=== PATIENT | male | born 1975 | race Caucasian/White ===

== ENCOUNTER 2018-01-03 21:10 | Emergency (ER) | payer MEDICARE, MEDICAID ==
--- NOTE | 2018-01-03 22:57 | ER Document Report ---
ED Extremity Problem, Upper - General Chief Complaint: Arm Pain Stated Complaint: ARM/ELBOW PAIN Time Seen by Provider: 01/03/18 21:55 Mode of Arrival: Ambulatory Information source: Patient Notes: 42-year-old male presents to ED for complaint of right elbow and forearm pain for about 1-2 weeks. He states that the elbow had just started to feel better when he tried to help push a car today. He states he and several other people with him heard a pop and then his arm started swelling back up and the pain became much worse. She is alert and oriented respirations regular and unlabored speaking in full sentences walks with a steady gait. TRAVEL OUTSIDE OF THE [place] IN LAST 30 DAYS: No - HPI Patient complains to provider of: Pain, Swelling, Right, Elbow Onset: Other - States is been hurting for 1-2 weeks but today he tried to push a car and he felt a pop several people heard a pop Recent injury: Yes Where: Outdoors Quality of pain: Sharp, Throbbing Pain Level: 5 Context: Other - [place] a pop while trying to push a car Exacerbated by: Movement, Exertion Relieved by: Rest, Positioning Similar symptoms previously: Yes Recently seen / treated by doctor: No - Related Data Allergies/Adverse Reactions: No Known Allergies Allergy (Verified 04/30/16 10:07) Past Medical History - General Information source: Patient - Social History Smoking Status: Former Smoker Cigarette use (# per day): No Chew tobacco use (# tins/day): No Smoking Education Provided: No Frequency of alcohol use: None Drug Abuse: Marijuana Occupation: Disabled Lives with: Family Family History: Reviewed & Not Pertinent Patient has suicidal ideation: No Patient has homicidal ideation: No - Past Medical History Cardiac Medical History: Reports: None Pulmonary Medical History: Reports: None EENT Medical History: Reports: None Neurological Medical History: Reports: None Endocrine Medical History: Reports: None Renal/ Medical History: Reports: None Malignancy Medical History: Reports None GI Medical History: Reports: None Musculoskeletal Medical History: Reports Hx Arthritis, Reports Hx Musculoskeletal Deformity, Reports Hx Musculoskeletal Trauma Skin Medical History: Reports None Psychiatric Medical History: Reports: None Traumatic Medical History: Reports: Hx Spine Fracture - Fractured L5 Infectious Medical History: Reports: None Past Surgical History: Reports: Hx Orthopedic Surgery - Spinal fusion - Immunizations Hx Diphtheria, Pertussis, Tetanus Vaccination: Yes - 2006 Review of Systems - Review of Systems Constitutional: No symptoms reported EENT: No symptoms reported Cardiovascular: No symptoms reported Respiratory: No symptoms reported Gastrointestinal: No symptoms reported Genitourinary: No symptoms reported Male Genitourinary: No symptoms reported Musculoskeletal: Joint pain - Right elbow, Joint swelling - Right elbow and forearm Skin: No symptoms reported Hematologic/Lymphatic: No symptoms reported Neurological/Psychological: No symptoms reported -: Yes All other systems reviewed and negative Physical Exam - Vital signs Vitals: Temp Pulse Resp BP Pulse Ox 98.6 F 93 20 160/102 H 100 01/03/18 21:16 01/03/18 21:16 01/03/18 21:16 01/03/18 21:16 01/03/18 21:16 Interpretation: Normal - General General appearance: Appears well, Alert - HEENT Head: Normocephalic, Atraumatic Eyes: Normal Pupils: PERRL - Respiratory Respiratory status: No respiratory distress Chest status: Nontender Breath sounds: Normal Chest palpation: Normal - Cardiovascular Rhythm: Regular Heart sounds: Normal auscultation Murmur: No - Abdominal Inspection: Normal Distension: No distension Bowel sounds: Normal Tenderness: Nontender Organomegaly: No organomegaly - Back Back: Normal, Nontender - Extremities General upper extremity: Normal color, Normal temperature General lower extremity: Normal inspection, Nontender, Normal color, Normal ROM , Normal temperature, Normal weight bearing. No: Adalberto's sign Elbow: Tender, Limited ROM - Due to pain, Other - Swelling. No: Abrasion, Deformity, Dislocation, Ecchymosis, Instability, Joint effusion, Laceration, Swollen bursa Forearm: Tender, Other - Swelling - Neurological Neuro grossly intact: Yes Cognition: Normal Orientation: AAOx4 [place] Coma Scale Eye Opening: Spontaneous Vipul Coma Scale Verbal: Oriented Vipul Coma Scale Motor: Obeys Commands [place] Coma Scale Total: 15 Speech: Normal Motor strength normal: LUE, RUE, LLE, RLE Sensory: Normal - Psychological Associated symptoms: Normal affect, Normal mood - Skin Skin Temperature: Warm Skin Moisture: Dry Skin Color: Normal Course - Re-evaluation Re-evalutation: 01/03/18 23:30 X-ray discussed with patient. Patient was given a Jelm dispense pack for his pain. 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 Patient does have swelling to the elbow and forearm from an injury he received while pushing a car. states the patient and several people there were standing nearby all heard a loud pop when the injury occurred today. Patient has been instructed to elevate ice and use a sling for his injury. - Vital Signs Vital signs: Temp Pulse Resp BP Pulse Ox 98.6 F 78 18 160/94 H 100 01/03/18 21:16 01/03/18 23:20 01/03/18 23:20 01/03/18 23:20 01/03/18 21:16 - Diagnostic Test Radiology reviewed: Image reviewed, Reports reviewed Procedures - Immobilization Right Elbow Immobilizer type: Blane wrap, Sling Performed by: PCT Post-Proc Neuro Vasc Exam: Normal Alignment checked and good: Yes Discharge - Discharge Clinical Impression: Injury of right elbow region Right forearm injury Qualifiers: Encounter type: initial encounter Qualified Code(s): S59.911A - Unspecified injury of right forearm, initial encounter Condition: Stable Disposition: HOME, SELF-CARE Additional Instructions: SPRAIN: Your injury is a sprain. A sprain results from stretching or tearing of the ligaments, usually from a twisting injury. The ligaments will require time and protection in order to heal properly. Many sprains are quite disabling and should be taken seriously. The usual initial treatment of sprains is cold packs, elevation, and rest of the injured area. Your physician has assessed the seriousness of your ligament injury, and has outlined a treatment plan. Understand that this treatment may change, depending on how you progress. If a re-examination was recommended, it is important that you follow up as instructed. Call the doctor any time if there is severe pain, numbness, or loss of function in the injured area. BLANE WRAP: A compression dressing (blane wrap) has been placed. This helps hold the area still. It limits swelling and internal bleeding. The wrap should be comfortably snug -- not tight. You should feel a sense of pressure, but not severe pain under the wrap. Unless the physician tells you otherwise, you can adjust the wrap for comfort. If the wrap causes symptoms suggesting it's too tight -- uncomfortable pressure, swelling or discoloration beyond the wrap, numbness, or severe pain - - you must loosen the wrap. If these symptoms don't resolve promptly, return for re-evaluation. ICE & ELEVATION: Apply ice packs frequently against the painful area. Many different schedules are recommended, such as "20 minutes on, 20 minutes off" or "one hour ice, two hours rest." If you need to work, you may need to go longer between ice treatments. You should plan to have the area ice packed AT LEAST one- fourth of the time. The ice should be applied over the wrap, tape, or splint, or over a layer of cloth -- not directly against the skin. Some ice bags have a built-in cloth and can be put directly on the skin. Your injured part should be elevated as much as possible over the next 48 hours. Try to keep the injury above the level of the heart. Avoid use of the injured area. Elevation and rest will decrease the swelling. ORAL NARCOTIC MEDICATION: You have been given a Jelm dispense pack for pain control. This medication is a narcotic. It's best taken with food, as nausea can result if taken on an empty stomach. Don't operate machinery or drive within six hours of taking this medication. Do not combine this medicine with alcohol, or with any medication which can cause sedation (such as cold tablets or sleeping pills) unless you get permission from the physician. Narcotics tend to cause constipation. If possible, drink plenty of fluids and eat a diet high in fiber and fruits. Please be aware that prescription narcotics also have the potential for abuse. People become addicted to these medications because of the general sense of wellbeing that they induce. This feeling along with a significant reduction in tension, anxiety, and aggression provides a stimulating seductive quality to these drugs. Once your pain is under control, we encourage you to discard your unused narcotics. Sling as Treatment A sling has been applied to protect the injury. This is adequate immobilization for this type of injury -- no cast or brace is required. Keep the sling on at all times until instructed to remove it by the doctor. Even though no cast or splint is needed, you must use the sling. If you use the arm too soon, it may not heal properly! If necessary, the sling can be adjusted for comfort. Return if you are encountering problems with the sling. X-ray has been discussed with you. No radiological injuries on this elbow. There is swelling to the elbow and forearm so you have been treated with a sling and Blane wrap to the elbow. Please follow-up with orthopedics by telephone on Saturday to schedule a follow-up visit. FOLLOW-UP CARE: If you have been referred to a physician for follow-up care, call the physician s office for an appointment as you were instructed or within the next two days. If you experience worsening or a significant change in your symptoms, notify the physician immediately or return to the Emergency Department at any time for re-evaluation. Forms: Elevated Blood Pressure, Smoking Cessation Education, Parent Work Note Referrals: [facility] [Provider Group] - Follow up as needed
--- NOTE | 2018-01-03 23:08 | RADIOLOGY REPORT (SQ) ---
EXAM DESCRIPTION: XR ELBOW 3 VIEWS COMPLETED DATE/TME: 01/03/2018 21:56 CLINICAL HISTORY: 42 years, Male, pain for 2 weeks COMPARISON: None. FINDINGS: 3 views of the right elbow. No acute fracture or dislocation. Normal osseous mineralization. No joint effusion. IMPRESSION: No acute fracture or dislocation. 2011 [employer]- All Rights Reserved
[2018-01-03] MEDS ORDERED: HYDROCODONE/ACETAMINOPHEN 5-325 MG (6 TAB/ER DISP) PO PRN (23:25)
[2018-01-03 23:50] VITALS: BP 160/94
== END 2018-01-03 23:54 | disposition home or self-care (01) ==
LOC: ER 21:10
DX: S59.901A Unspecified injury of right elbow, initial encounter (principal); M25.521 Pain in right elbow; M79.631 Pain in right forearm; X50.9XXA Other and unspecified overexertion or strenuous movements or postures, initial encounter; Y93.89 Activity, other specified; Y92.9 Unspecified place or not applicable; Y99.9 Unspecified external cause status
CPT/HCPCS: 73080; A9270; 99283

== ENCOUNTER 2018-07-20 11:23 | Emergency (ER) | payer MEDICARE, MEDICAID ==
[2018-07-20] MEDS ORDERED: PREDNISONE 20 MG TABLET PO ONE (11:37)
[2018-07-20] MEDS ORDERED: DIPHENHYDRAMINE HCL 50 MG CAPSULE PO ONE (11:37)
[2018-07-20] MEDS ORDERED: FAMOTIDINE 20 MG TABLET PO ONE (11:37)
--- NOTE | 2018-07-20 11:41 | ER Document Report ---
ED Allergic Reaction - General Chief Complaint: Allergic Reaction Stated Complaint: POSSIBLE ALLERGIC REACTION Time Seen by Provider: 07/20/18 11:32 Mode of Arrival: Ambulatory Information source: Patient, [facility] Records Notes: This 43-year-old male patient reports waking up this morning with periorbital edema and throat discomfort. He was cutting down trees in the yard yesterday including one that had a perfume type odor. He had a similar reaction when he cut down the same tree in the past. He does not have reactions to poison bryan and poison oak. There is no involvement of the skin on the hands. TRAVEL OUTSIDE OF THE [place] IN LAST 30 DAYS: No - Related Data Allergies/Adverse Reactions: No Known Allergies Allergy (Verified 07/20/18 11:24) Past Medical History - General Information source: Patient, [facility] Records - Social History Smoking Status: Never Smoker Cigarette use (# per day): No Chew tobacco use (# tins/day): No Smoking Education Provided: No Frequency of alcohol use: None Drug Abuse: Marijuana Lives with: Spouse/Significant other Family History: Reviewed & Not Pertinent Patient has suicidal ideation: No Patient has homicidal ideation: No - Medical History Medical History: Negative Musculoskeletal Medical History: Reports Hx Arthritis, Reports Hx Musculoskeletal Deformity, Reports Hx Musculoskeletal Trauma Traumatic Medical History: Reports: Hx Spine Fracture - Fractured L5 Past Surgical History: Reports: Hx Orthopedic Surgery - Spinal fusion L5-S1 x2 - Immunizations Hx Diphtheria, Pertussis, Tetanus Vaccination: Yes - 2006 Review of Systems - Review of Systems Constitutional: No symptoms reported EENT: See HPI Cardiovascular: No symptoms reported Respiratory: No symptoms reported Gastrointestinal: No symptoms reported Genitourinary: No symptoms reported Musculoskeletal: No symptoms reported Skin: No symptoms reported Hematologic/Lymphatic: No symptoms reported Neurological/Psychological: No symptoms reported Physical Exam - Vital signs Vitals: Temp Pulse Resp BP Pulse Ox 98.1 F 73 16 140/84 H 99 07/20/18 11:27 07/20/18 11:27 07/20/18 11:27 07/20/18 11:27 07/20/18 11:27 Interpretation: Hypertensive - General General appearance: Appears well, Alert In distress: None - HEENT Head: Normocephalic, Atraumatic Eyes: Periorbital edema - Skin around the eyes has a dry appearance consistent with a contact dermatitis type reaction. There is edema to the eyelids and infraorbital facial region. The eyes are not swollen shut. Conjunctiva: Normal Extraocular movements intact: Yes Pupils: PERRL Nasal: Normal Mouth/Lips: Normal Pharynx: Erythema Neck: Normal - Respiratory Respiratory status: No respiratory distress Breath sounds: Normal - Cardiovascular Rhythm: Regular Heart sounds: Normal auscultation Murmur: No - Back Back: Normal - Extremities General upper extremity: Normal inspection General lower extremity: Normal inspection - Neurological Neuro grossly intact: Yes - Psychological Associated symptoms: Normal affect, Normal mood - Skin Skin Temperature: Warm Skin Moisture: Dry Skin Color: Normal Course - Re-evaluation Re-evalutation: 07/20/18 12:57 Patient reports he is feeling much better now. Throat does not feel swollen. The itching is decreased. The appearance of the periorbital rash is unchanged. This would be expected, as this is a contact dermatitis type rash. - Vital Signs Vital signs: Temp Pulse Resp BP Pulse Ox 98.3 F 65 16 137/93 H 98 07/20/18 12:56 07/20/18 12:56 07/20/18 12:56 07/20/18 12:56 07/20/18 12:56 Discharge - Discharge Clinical Impression: Contact dermatitis Qualifiers: Contact dermatitis type: allergic Contact dermatitis trigger: unspecified trigger Qualified Code(s): L23.9 - Allergic contact dermatitis, unspecified cause Condition: Stable Disposition: HOME, SELF-CARE Additional Instructions: Acute Allergic Reaction Your symptoms are due to an allergic reaction. Allergy can cause hives, swelling of the hands, feet, and face, hoarseness, and difficulty swallowing or breathing. It may be due to exposure to medication, animal dander, foods, infection, or insect bites. Medication is a common cause, even when prior use of this same medication caused no problems. Acute treatment may include adrenalin and antihistamines. Usually, the specific allergic agent can't be identified unless repeated episodes occur. Home treatment includes the following: (1) Stop any suspicious medications. This will be discussed with you. (2) Oral antihistamines for the next four to five days. Example, diphenhydramine (Benadryl) every four hours. (3) You may also use cimetidine (Tagamet), ranitidine (Zantac), or famotidine (Pepcid) every four hours if diphenhydramine is not controlling itching and hives. (4) Avoid aspirin until the hives completely disappear. (5) Avoid hot bahs or showers until the hives are completely gone. Call the doctor if faintness, difficulty swallowing, tightness in the chest, or wheezing occurs. Start the prednisone tomorrow. Take Pepcid throughout the day today. Take Benadryl if the itching returns. Be sure to wash any clothing that you were wearing yesterday while cutting the trees. Follow-up with a local medical doctor if not improving. RETURN TO THE EMERGENCY ROOM IF ANY NEW OR WORSENING SYMPTOMS. Prescriptions: Prednisone [Deltasone 10 mg Tablet] 10 mg PO ASDIR PRN #21 tablet PRN Reason:
[2018-07-20 12:57] VITALS: BP 137/93
== END 2018-07-20 13:05 | disposition home or self-care (01) ==
LOC: ER 11:23
DX: L23.9 Allergic contact dermatitis, unspecified cause (principal); R60.9 Edema, unspecified; X58.XXXA Exposure to other specified factors, initial encounter; Z98.1 Arthrodesis status
CPT/HCPCS: 99283; A9270 ×3; J7512